=== PATIENT | female | born 1970 ===

== ENCOUNTER 2018-04-30 10:35 | Emergency (ER) | payer OTHER ==
[2018-04-30 10:35] VITALS: BMI 32.3
[2018-04-30 10:53] VITALS: BP 141/86; PULSE 75; RESP 18; TEMP 98.8; O2SAT 99
[2018-04-30] MEDS ORDERED: Lidocaine 5% Patch TD STA (13:12)
[2018-04-30] MEDS ORDERED: Lidocaine 5% Patch TD ONE (13:29)
--- NOTE | 2018-04-30 13:53 | C.PDOC ---
History Of Present Illness 47 y/o female presents to the ER complaining of left upper back pain. Patient states that the pain radiates to the left anterior chest wall. Patient reports that she lifts objects all day at work. Denies having trauma, weakness, numbness, tingling, CP, and SOB. Time Seen by Provider: 04/30/18 12:48 Chief Complaint (Nursing): Breast Problem History Per: Medical Concierge ([id number]) History/Exam Limitations: no limitations Onset/Duration Of Symptoms: Days Current Symptoms Are (Timing): Still Present Severity: Moderate Past Medical History Reviewed: Historical Data, Nursing Documentation, Vital Signs Vital Signs: Last Vital Signs Temp 98.8 F 04/30/18 10:49 Pulse 75 04/30/18 10:49 Resp 18 04/30/18 10:49 BP 141/86 04/30/18 10:49 Pulse Ox 99 04/30/18 10:49 - Medical History PMH: No Chronic Diseases Surgical History: Cholecystectomy Family History: States: No Known Family Hx - Social History Hx Alcohol Use: No Hx Substance Use: No - Immunization History Hx Tetanus Toxoid Vaccination: No Hx Influenza Vaccination: No Hx Pneumococcal Vaccination: No Review Of Systems Cardiovascular: Negative for: Chest Pain Respiratory: Negative for: Shortness of Breath Musculoskeletal: Positive for: Back Pain Neurological: Negative for: Weakness, Numbness Physical Exam - Physical Exam Appears: Non-toxic, No Acute Distress Skin: Warm, Dry Head: Atraumatic, Normacephalic Eye(s): bilateral: Normal Inspection Nose: Normal Oral Mucosa: Moist Neck: No Midline Cervical Tenderness, Supple, Other (left trapezius tenderness) Chest: Symmetrical, Tenderness (mild left upper chest wall tenderness), Other (no tenderness on breast exam) Cardiovascular: Rhythm Regular Respiratory: No Rales, No Rhonchi, No Wheezing Extremity: Normal ROM Neurological/Psych: Oriented x3, Normal Speech, Normal Motor, Normal Sensation ED Course And Treatment O2 Sat by Pulse Oximetry: 99 (RA) Pulse Ox Interpretation: Normal Medical Decision Making Medical Decision Making: Plan: --Toradol IM --Lidoderm Patch Updates: pt with decreased pain s/p medication. d/c with nsaids. Disposition - Disposition Referrals: [facility] [Outside] Disposition: HOME/ ROUTINE Disposition Time: 13:52 Condition: GOOD Additional Instructions: Retire el parche en 12 horas. [place] ibuprofeno segn lo prescrito con la comida para el shirley. Evite levantar objetos pesados. Maria C un seguimiento con garcia mdico en unos desir. Regrese a la phoebe de emergencias para wily si hay sntomas peores. Remove patch in 12 hours. Take ibuprofen as prescribed with food for shirley. Avoid any heavy lifting. Follow up with your doctor in a few days. Return to ER for any worse symptoms. Prescriptions: Ibuprofen [Motrin] 600 mg PO TID #30 tab Instructions: Muscle Strain (DC) Forms: Gen Discharge Inst Welsh, Vyatta (Welsh), Work Excuse Print Language: GREEK - Clinical Impression Clinical Impression: Trapezius muscle strain - PA / [employer] / Resident Statement MD/DO has reviewed & agrees with the documentation as recorded. - Scribe Statement The provider has reviewed the documentation as recorded by the Scribe Cornel Paula Provider Attestation All medical record entries made by the Scribe were at my direction and personally dictated by me. I have reviewed the chart and agree that the record accurately reflects my personal performance of the history, physical exam, medical decision making, and the department course for this patient. I have also personally directed, reviewed, and agree with the discharge instructions and disposition.
== END 2018-04-30 14:00 | disposition home or self-care (01) ==
LOC: C.ER 10:35
DX: S46.912A Strain of unspecified muscle, fascia and tendon at shoulder and upper arm level, left arm, initial encounter (principal); X50.9XXA Other and unspecified overexertion or strenuous movements or postures, initial encounter; Y99.0 Civilian activity done for income or pay
CPT/HCPCS: 96372; 99284; J1885